=== PATIENT | male | born 1970 | race Caucasian/White ===

== ENCOUNTER 2018-05-06 17:47 | Emergency (ER) | payer SELFPAY ==
[2018-05-06] MEDS ORDERED: SEROQUEL 200MG200 MG PO (18:32)
[2018-05-06 18:36] LABS: HEMATOCRIT 44.7 % (42.0-52.0); HEMOGLOBIN 16.7 g/dL (13.5-18.0); MEAN CELL VOLUME 84 fl (78-100); MEAN CORPUSCULAR HEMOGLOBIN 32 pg (27-31); MEAN CORPUSCULAR HGB CONC 37 g/dL (33-37); MEAN PLATELET VOLUME 9.9 fl (7.4-10.4); PLATELET COUNT 136 K/mm3 (130-400); RED BLOOD COUNT 5.31 M/mm3 (4.20-5.60); RED CELL DISTRIBUTION WIDTH 13.5 % (11.5-14.5); WHITE BLOOD COUNT 8.1 K/mm3 (4.8-10.8)
[2018-05-06 19:01] LABS: LYMPHOCYTE 9 % (20-51); MONOCYTE 8 % (3-10); NEUTROPHILS 81 % (42-75)
[2018-05-06 19:13] LABS: ALBUMIN 4.8 g/dL (3.5-5.0); CALCIUM 9.4 mg/dL (8.4-10.2); POTASSIUM 3.8 mmol/L (3.6-5.0); TOTAL BILIRUBIN 3.9 mg/dL (0.2-1.3); TOTAL PROTEIN 8.4 g/dL (6.3-8.2)
[2018-05-07] MEDS ORDERED: CEPHALEXIN500 M1 PO (00:27)
[2018-05-07] MEDS ORDERED: NORCO 325 MG-51 TA1 PO (00:27)
[2018-05-07 01:56] LABS: PROTHROMBIN TIME 10.7 SECONDS (9.0-12.0)
[2018-05-07 03:00] VITALS: BP 133/84
== END 2018-05-07 03:00 | disposition short-term general hospital (02) ==
LOC: ED 17:47 → MED/SURG 23:00 → ED 23:00
PROVIDERS: Family Medicine
DX: N39.0 Urinary tract infection, site not specified (principal); R33.9 Retention of urine, unspecified; N13.9 Obstructive and reflux uropathy, unspecified; R17 Unspecified jaundice; Z87.442 Personal history of urinary calculi; R41.0 Disorientation, unspecified; F10.20 Alcohol dependence, uncomplicated; Z87.19 Personal history of other diseases of the digestive system
CPT/HCPCS: A4216; J0696; J1956; J2405; J3010; J7030